=== PATIENT | female | born 1990 | race Caucasian/White ===

== ENCOUNTER 2017-02-09 08:53 | Emergency (ER) | payer BC ==
[2017-02-09 11:00] VITALS: BP 109/76
== END 2017-02-09 11:00 | disposition home or self-care (01) ==
LOC: ED 08:53
DX: S39.91XA Unspecified injury of abdomen, initial encounter (principal); V49.9XXA Car occupant (driver) (passenger) injured in unspecified traffic accident, initial encounter; Y93.89 Activity, other specified; Y92.89 Other specified places as the place of occurrence of the external cause; Y99.8 Other external cause status
CPT/HCPCS: J1885